=== PATIENT | male | born 1955 | race Caucasian/White ===

== ENCOUNTER → 2024-11-09 | Emergency (ER) | payer MEDICARE, OTHER ==
[~2024-11-09] VITALS: Ht 160 cm; Wt 56.7 kg
[2024-11-09 14:15] LABS: BASOPHILS % (AUTO) 0.5 % (0.0-2.0); EOSINOPHILS % (AUTO) 0.6 % (0.0-6.0); HEMATOCRIT 35 % (39-51); HEMOGLOBIN 12.1 g/dL (13.5-17.5); LYMPHOCYTES # (AUTO) 1.8 K/uL (0.8-4.8); LYMPHOCYTES % (AUTO) 23.8 % (20.0-44.0); MEAN CORPUSCULAR HEMOGLOBIN 31 PG (26.0-33.0); MEAN CORPUSCULAR HGB CONC 34 g/dl (31.0-36.0); MEAN CORPUSCULAR VOLUME 90 fL (80-96); MONOCYTES # (AUTO) 0.8 K/uL (0.1-1.30); MONOCYTES % (AUTO) 10.9 % (2.0-12.0); NEUTROPHILS # (AUTO) 4.8 K/uL (1.8-8.9); NEUTROPHILS % (AUTO) 64.2 % (43.0-81.0); PLATELET COUNT (AUTO) 152 K/uL (150-450); RED BLOOD CELL COUNT(AUTO) 3.92 MIL/uL (4.5-6.0); WHITE BLOOD COUNT (AUTO) 7.5 K/uL (4.3-11.0)
[2024-11-09 14:31] LABS: CREATININE 0.7 mg/dL (0.6-1.3); POTASSIUM 3.6 mmol/L (3.5-5.1)
[2024-11-09 18:02] VITALS: BP 114/64; TEMP 98; O2SAT 95
== END | disposition home or self-care (01) ==
LOC: ER 13:25
DX: S00.81XA Abrasion of other part of head, initial encounter (principal); I10 Essential (primary) hypertension; W18.39XA Other fall on same level, initial encounter; Y93.89 Activity, other specified; Y92.89 Other specified places as the place of occurrence of the external cause; Y99.8 Other external cause status
CPT/HCPCS: 36415; 70450-TC; 80048-TC; 84484-TC; 85025-TC